=== PATIENT | male | born 1990 | race Caucasian/White ===

== ENCOUNTER → 2024-04-18 | Outpatient (CLI) | payer OTHER | LOC: M CARPUL 14:35 | PROVIDERS: ATTEND Family Medicine | DX: J45.30 Mild persistent asthma, uncomplicated (principal) ==

== ENCOUNTER → 2025-05-22 | Outpatient (CLI) | payer OTHER | LOC: M CARPUL 12:53 | PROVIDERS: ATTEND Physician Assistant | DX: J45.909 Unspecified asthma, uncomplicated (principal) ==